=== PATIENT | female | born 1955 | race Caucasian/White ===

== ENCOUNTER 2024-08-07 06:19 | Day surgery (SDC) | payer MEDICARE, SELFPAY | END 2024-08-07 13:11 | disposition home or self-care (01) | LOC: GI 06:19 | PROVIDERS: ATTENDING PHYSICIAN Internal Medicine Gastroenterology | DX: D50.0 Iron deficiency anemia secondary to blood loss (chronic) (principal); K57.30 Diverticulosis of large intestine without perforation or abscess without bleeding; R13.14 Dysphagia, pharyngoesophageal phase; R12 Heartburn; K44.9 Diaphragmatic hernia without obstruction or gangrene; K57.10 Diverticulosis of small intestine without perforation or abscess without bleeding | CPT/HCPCS: 43235; 45378 ==

== ENCOUNTER → 2025-03-09 16:00 | Outpatient (REF) | payer MEDICARE, SELFPAY | LOC: RAD 16:00 | PROVIDERS: ATTENDING PHYSICIAN Nurse Practitioner Adult Health | DX: I72.8 Aneurysm of other specified arteries (principal) | CPT/HCPCS: 74174; Q9967 ==